=== PATIENT | female | born 1970 | race Caucasian/White ===

== ENCOUNTER 2017-11-03 11:56 | Emergency (ER) | payer MEDICAID, OTHER ==
[2017-11-03 11:56] VITALS: BMI 36.5
[2017-11-03 12:05] VITALS: BP 123/73; PULSE 71; RESP 18; TEMP 98.4; O2SAT 96
[2017-11-03] MEDS ORDERED: Enoxaparin 40 mg Syringe SC STA (12:58)
[2017-11-03] MEDS ORDERED: Enoxaparin 100 mg Syringe ONE (13:07)
--- NOTE | 2017-11-03 15:45 | C.PDOC ---
History Of Present Illness 47 y/o female presents to the ER complaining of pain and swelling around the left ankle and the dorsal aspect of left foot. Patient reports that the pain becomes worse at the end of the day. Patient has a history of left ankle surgery. Of note, patient states that her weight increased from 190 pounds to 270 pounds. Time Seen by Provider: 11/03/17 12:50 Chief Complaint (Nursing): Lower Extremity Problem/Injury History Per: Patient History/Exam Limitations: no limitations Onset/Duration Of Symptoms: Hrs Severity: Moderate Past Medical History Reviewed: Historical Data, Nursing Documentation, Vital Signs Vital Signs: Last Vital Signs Temp 98.4 F 11/03/17 12:03 Pulse 71 11/03/17 12:03 Resp 18 11/03/17 12:03 BP 123/73 11/03/17 12:03 Pulse Ox 96 11/03/17 17:46 - Medical History PMH: Denies: Anxiety, Bipolar Disorder, Depression, Personality Disorder, Post Traumatic Stress Disorder, Schizophrenia Surgical History: No Surg Hx Family History: States: No Known Family Hx - Social History Hx Alcohol Use: No Hx Substance Use: No - Immunization History Hx Tetanus Toxoid Vaccination: No Hx Influenza Vaccination: No Hx Pneumococcal Vaccination: No Review Of Systems Except As Marked, All Systems Reviewed And Found Negative. Musculoskeletal: Positive for: Other (left ankle pain) Neurological: Negative for: Weakness, Numbness Physical Exam - Physical Exam Appears: Non-toxic, No Acute Distress, Other (morbidly obese) Skin: Normal Color, Warm Head: Atraumatic, Normacephalic Eye(s): bilateral: Normal Inspection, PERRL Nose: Normal Oral Mucosa: Moist Neck: Supple Chest: Symmetrical Cardiovascular: Rhythm Regular Respiratory: Normal Breath Sounds, No Accessory Muscle Use Extremity: Normal ROM, No Tenderness, Pedal Edema (mild edema in the left ankle and left foot), No Deformity, No Swelling Neurological/Psych: Oriented x3, Normal Speech, Normal Cognition, Normal Motor, Normal Sensation ED Course And Treatment O2 Sat by Pulse Oximetry: 96 (RA) Pulse Ox Interpretation: Normal - CT Scan/US L lower ext doppler Other Rad Studies (CT/US): Interpreted By Me, Radiology Report Reviewed (neg for DVT) Medical Decision Making Medical Decision Making: trace dependent edema b/l L>R ankles prob due to body habitus as improved in AM and worse @ end of work day Teds Stockings and weight loss educated. Disposition Doctor Will See Patient In The: Office Counseled Patient/Family Regarding: Studies Performed, Diagnosis - Disposition Referrals: [facility] [Outside] [facility] [Outside] Disposition: HOME/ ROUTINE Disposition Time: 15:46 Condition: GOOD Additional Instructions: Venous Douplex Doppler Ultrasound exam of your LEFT leg is NEGATIVE for deep vein thrombosis. weight loss and TEDS stockings (above the knee) to minimize ankle edema at the end of the day Serious weight loss Follow-up with our outpatient Clinic as needed. Instructions: Weight Management (ED), Obesity (ED), Leg Edema (ED) Forms: Hyper[employer] (Wolof) - Clinical Impression Clinical Impression: Pedal edema - Scribe Statement The provider has reviewed the documentation as recorded by the Marcianoibshawn Maldonado Provider Attestation: All medical record entries made by the Scribe were at my direction and personally dictated by me. I have reviewed the chart and agree that the record accurately reflects my personal performance of the history, physical exam, medical decision making, and the department course for this patient. I have also personally directed, reviewed, and agree with the discharge instructions and disposition.
--- NOTE | 2017-11-05 09:48 | VASCLAB ---
PROCEDURE: Left Lower Extremity Venous Duplex Exam. HISTORY: L lower leg edema PRIORS: None. TECHNIQUE: Left common femoral, femoral, popliteal and posterior tibial, peroneal and great saphenous veins were evaluated. Flow was assessed with color Doppler, compressibility, assessment of phasic flow and augmentation response. Report prepared by LISANDRO Chawla, RVT FINDINGS: LEFT: 1. Common Femoral Vein: 1.1. Compressibility - Fully compressible: Thrombus - None : Flow - Phasic: Augmentation -Normal: Reflux - None. 2. Femoral Vein: 2.1. Compressibility - Fully compressible: Thrombus - None: Flow - Phasic: Augmentation -Normal: Reflux - None. 3. Popliteal Vein: 3.1. Compressibility - Fully compressible: Thrombus - None: Flow - Phasic: Augmentation -Normal: Reflux - None. 4. Posterior Tibial Vein: 4.1. Compressibility - Fully compressible: Thrombus - None: Flow - Phasic: Augmentation -Normal: Reflux - None. 5. Peroneal Vein: 5.1. Compressibility - Fully compressible: Thrombus - None: Flow - Phasic: Augmentation -Normal: Reflux - None. 6. Great Saphenous Vein: 6.1. Compressibility - Fully compressible: Thrombus - None: Flow - Phasic: Augmentation - Normal: Reflux - None. OTHER FINDINGS: IMPRESSION: No evidence of deep or superficial vein thrombosis of the left lower extremity with excellent venous flow. Normal valve function noted of the left side. Normal venous flow noted in the right common femoral vein.
== END 2017-11-03 16:01 | disposition home or self-care (01) ==
LOC: C.ER 11:56
DX: R60.0 Localized edema (principal)
CPT/HCPCS: 93971; 96372; 99283; J1650